=== PATIENT | male | born 1970 | race Caucasian/White ===

== ENCOUNTER 2016-09-11 09:55 | Emergency (ER) | payer OTHER ==
[2016-09-11 12:20] VITALS: BP 134/92
--- NOTE | 2016-09-11 12:20 | RAD ---
INDICATION: Upper back pain. COMPARISON: Comparison is made with a prior chest x-ray study from September 07, 2011. TECHNIQUE: AP and lateral films of the dorsal spine were obtained. FINDINGS: The vertebra are in normal alignment. No fracture is seen. Disc spaces appear maintained. IMPRESSION: NO EVIDENCE FOR FRACTURE.
--- NOTE | 2016-09-11 12:54 | RAD ---
INDICATION: Posterior lower cervical spine pain following injury 2 days ago. Hyperflexion injury. COMPARISON: August 26, 2006 CT. TECHNIQUE: Multidetector CT images foramen magnum to lung apices without contrast. Multiplanar reformation. REPORT: Negative for vertebral body or posterior element fracture at any level. Negative for facet subluxation. Negative for paravertebral hematoma. At C5-C6 there is moderate disc space narrowing and moderately severe dorsal osteophytosis and disc complex with interval enlargement of the osteophytes compared with the 2007 exam. Resulting mild acquired central canal stenosis. At C6-C7 there is mild vertebral endplate osteophytosis without significant disc space narrowing. Only slight resulting impression on the ventral margin of the thecal sac. IMPRESSION: Negative for traumatic cervical spine injury. Progression of degenerative spondylosis compared with the 2007 exam. No persistent widening at the anterior margin of the C6-C7 disc space evident.
--- NOTE | 2016-09-11 13:15 | UC ---
Tawanna Wise Matthew, scribed for Cyril Macdonald MD on 09/11/16 at 1125 . Neck Pain HPI - HPI Summary HPI Summary: A 46 y/o male presents to [facility] [place] pain since two days ago. The pain is rated 6/10 in severity. 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 The patient states that an instructor was trying to control the patient while in a supine position. He went into a push up position with his head lower than his body and the instructor on top of him lost his balance and sled on his neck. Immediately after standing, the patient felt a burning sensation and described the feeling as a possible pull muscle. Associated symptoms include headache, stiffness and decreased ROM. He has been taking ibuprofen without relieve. The patient does not smoke and drinks occasionally. FHx of diabetes and HTN. - History of Current Complaint Stated Complaint: NECK INJURY Time Seen by Provider: 09/11/16 11:00 Hx Obtained From: Patient Onset/Duration Of Injury/Symptoms: Days Timing: Constant Onset/Duration: Sudden Onset, Lasting Days, Still Present Severity: Moderate Pain Intensity: 6 Pain Scale Used: 0-10 Numeric Associated Signs & Symptoms: Positive: Headache - Allergies/Home Medications Allergies/Adverse Reactions: Allergies Allergy/AdvReac Type Severity Reaction Status Date / Time Lidocaine Allergy Severe Shortness Verified 08/17/15 11:30 of Breath Erythromycin Allergy Intermediate Diarrhea Verified 08/17/15 11:30 Home Medications: Home Medications Ibuprofen TAB* [Advil TAB*] 800 mg PO PRN 09/11/16 [History] PMH/Surg Hx/FS Hx/Imm Hx Endocrine History Of: Denies: Diabetes, Dyslipidemia Cardiovascular History Of: Denies: Hypertension - Surgical History Surgery Procedure, Year, and Place: ACL bilateral 2014, Meniscus Repair, L ACL reconstructive SX 2004, Right ACL repair 2013 - Family History Known Family History: Positive: Hypertension, Diabetes - Social History Alcohol Use: Weekly Substance Use Type: None Smoking Status (MU): Never Smoked Tobacco Review Of Systems Constitutional: Positive: Negative Skin: Positive: Negative Eyes: Positive: Negative ENT: Positive: Negative Respiratory: Positive: Negative Cardiovascular: Positive: Negative Gastrointestinal: Positive: Negative Genitourinary: Positive: Negative Musculoskeletal: Positive: Myalgia - Neck pain Neurological: Positive: Headache Psychological: Positive: Negative All Other Systems Reviewed And Are Negative: Yes Physical Exam Triage Information Reviewed: Yes Vital Signs: Temp Pulse Resp BP Pulse Ox 73 18 139/102 96 09/11/16 11:03 09/11/16 11:03 09/11/16 11:03 09/11/16 11:03 Vital Signs Reviewed: Yes - Additional Comments VITAL SIGNS: Reviewed. GENERAL: Patient is a well developed and nourished (male/female/child) who is lying comfortable in the stretcher. Patient is not in any acute respiratory distress. HEAD AND FACE: Normocephalic EYES: PERRLA, EOMI x 2. EARS: Hearing grossly intact. MOUTH: Oropharynx within normal limits. NECK: Supple, trachea is midline, no adenopathy, no JVD, no carotid bruit. The patient has C-Spine vertebral tenderness, positive bilateral para-spinal muscle tenderness in the C-Spine and positive right sternocleidomastoid muscle tenderness. CHEST: Symmetric, no tenderness at palpation LUNGS: Clear to auscultation bilaterally. No wheezing or crackles. CVS: Regular rate and rhythm, S1 and S2 present, no murmurs or gallops appreciated. ABDOMEN: Soft, non-tender. Bowel sounds are normal. No abdominal abnormal pulsations. EXTREMITIES: Full ROM in all major joints, no edema, no cyanosis or clubbing. NEURO: Alert and oriented x 3. No acute neurological deficits. Speech is normal and follows commands. SKIN: Dry and warm Diagnostics - Radiology Thoracic Spine XR Xray Interpretation: No Acute Changes - IMPRESSION: NO EVIDENCE FOR FRACTURE. Radiology Interpretation Completed By: Radiologist C-Spine CT Xray Interpretation: Positive (See Comments) - IMPRESSION: Negative for traumatic cervical spine injury. Progression of degenerative spondylosis compared with the 2007 exam. No persistent widening at the anterior margin of the C6-C7 disc space evident. Radiology Interpretation Completed By: Radiologist Neck Pain Course/Dx - Course Course Of Treatment: A 46 y/o male presents to [facility] with neck pain since two days ago. The pain is rated 6/10 in severity. 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 The patient states that an instructor was trying to control the patient while in a supine position. He went into a push up position with his head lower than his body and the instructor on top of him lost his balance and sled on his neck. Immediately after standing, the patient felt a burning sensation and described the feeling as a possible pull muscle. Associated symptoms include headache, stiffness and decreased ROM. He has been taking ibuprofen without relieve. The patient does not smoke and drinks occasionally. FHx of diabetes and HTN. CT C-Spine is negative for traumatic cervical spine injury. There is progression of degenerative spondylosis compared with the 2007 exam and no persistent widening at the anterior margin of the C6-C7 disc space evident. XR of T-Spine is negative for a fracture or dislocation. At this point the patient will be given a prescription for ibuprofen and Percocet for pain. He is to follow-up with his PCP. The patient was instructed to go to the ED if he develops increased pain, UE or LE numbness, or has any other complaint. The patient understands and agrees. He is hemodynamically stable and A&Ox3. Compensation paperwork was filled out. - Differential Dx/Diagnosis Differential Dx/HQI/PQRI: Cervical Fracture, Sprain, Strain Provider Diagnoses: Neck pain, Upper back pain Discharge - Discharge Plan Condition: Stable Disposition: HOME Patient Education Materials: Back Pain (ED), Neck Pain (ED) Referrals: [facility] [place] [facility] [Outside] Additional Instructions: Please use the physician referral to find a primary care physician and follow- up with them. Please return to the ED if you develop increased pain, upper or lower extremity numbness, or any other complaint. The documentation as recorded by the Tawanna merritt Matthew accurately reflects the service I personally performed and the decisions made by me, Cyril Macdonald MD.
== END 2016-09-11 13:00 | disposition home or self-care (01) ==
LOC: UCEAST 09:55
DX: M54.2 Cervicalgia (principal); M54.6 Pain in thoracic spine; M47.812 Spondylosis without myelopathy or radiculopathy, cervical region; Z88.4 Allergy status to anesthetic agent; Z88.1 Allergy status to other antibiotic agents
CPT/HCPCS: 72070; 72125; 99201; G0463

== ENCOUNTER 2016-09-17 12:46 | Emergency (ER) | payer BC, OTHER ==
[2016-09-17 15:27] VITALS: BP 148/97
--- NOTE | 2016-09-17 17:18 | UC ---
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 HE STATES HE HAS BEEN HAVING TO DRIVE TO HIS MEDICAL APPTS AND HAS HAD NO ISSUE. HE WAS INJURED ON THE JOB ON THURSDAY OF LAST WEEK AND SEEN IN OUR CLINIC BY DR. CASAREZ ON THURSDAY. HE WAS SENT FOR A FOLLOW UP FOR NEUROSURGERY D/T HIS PAIN, INJURY AND LIMITATIONS OF HIS RIGHT SHOULDER. HE STATES HE NEEDED A PCP PRIOR TO REFERRAL, AND WAS JUST SEEN BY DR. SPRAGUE'S OFFICE THIS WEEK AND IS AWAITING APPT WITH NEUROSURGERY. PROVIDER WAS ABLE TO READ OVER PREVIOUS VISIT AND NO RESTRICTIONS WERE PLACED ON PATIENT TO NOT DRIVE. WHILE HE STATES HE HAS PAIN ON NECK EXTENSION AND ROTATION LEFT AND RIGHT, HE IS ABLE TO PERFORM THESE MOVEMENTS WHICH WOULD CAUSE NO RESTRICTIONS WITH HIM DRIVING. - History of Current Complaint Chief Complaint: UCTrauma Stated Complaint: NECK INJURY Time Seen by Provider: 09/17/16 16:24 Hx Obtained From: Patient Onset/Duration Of Injury/Symptoms: Weeks Mechanism Of Injury: Blunt Trauma Timing: Constant Onset/Duration: Sudden Onset Severity: Mild Pain Intensity: 2 Pain Scale Used: 0-10 Numeric Location: Discrete At: - RIGHT SHOULDER AND RIGHT SIDE OF NECK Aggravating Factors: Movement Alleviating Factors: Position, Heat Associated Signs & Symptoms: Positive: Negative Related History: Occupational Injury - Risk Factors Meningitis Risk Factors: Negative - Allergies/Home Medications Allergies/Adverse Reactions: Allergies Allergy/AdvReac Type Severity Reaction Status Date / Time Lidocaine Allergy Severe Shortness Verified 09/17/16 15:28 of Breath Erythromycin Allergy Intermediate Diarrhea Verified 09/17/16 15:28 PMH/Surg Hx/FS Hx/Imm Hx Previously Healthy: Yes Endocrine History Of: Denies: Diabetes, Thyroid Disease, Dyslipidemia Cardiovascular History Of: Denies: Cardiac Disorders, Hypertension Respiratory History Of: Denies: COPD, Asthma GI/ History Of: Denies: Ulcer - Surgical History Surgical History: Yes Surgery Procedure, Year, and Place: ACL bilateral 2013, Meniscus Repair, L ACL reconstructive SX 2004, Right ACL repair 2013 - Family History Known Family History: Positive: Hypertension, Diabetes - Social History Occupation: Employed Full-time Lives: With Family Alcohol Use: Occasionally Substance Use Type: None Smoking Status (MU): Never Smoked Tobacco Review Of Systems Constitutional: Positive: Negative Respiratory: Positive: Negative Cardiovascular: Positive: Negative Gastrointestinal: Positive: Negative Musculoskeletal: Positive: Myalgia - PATIENT IS ABLE TO ROTATE NECK BOTH LEFT AND RIGHT AND EXTEND AND FLEX NECK BUT WITH PAIN. NO OTHER MSK ABNORMALITIES Neurological: Positive: Negative Psychological: Positive: Negative All Other Systems Reviewed And Are Negative: Yes Physical Exam Triage Information Reviewed: Yes Appearance: Well-Appearing, No Pain Distress, Well-Nourished Vital Signs: Initial Vital Signs Temp 98.4 F 09/17/16 15:21 Pulse 74 09/17/16 15:21 Resp 18 09/17/16 15:21 BP 148/97 09/17/16 15:21 Pulse Ox 100 09/17/16 15:21 Vital Signs Reviewed: Yes Eye Exam: Normal Eyes: Positive: Conjunctiva Clear Dental Exam: Normal Neck exam: Normal Neck: Positive: Supple Respiratory Exam: Normal Respiratory: Positive: Chest non-tender Cardiovascular: Positive: RRR Musculoskeletal: Positive: ROM Intact, No Edema Neurological Exam: Normal Neurological: Positive: Alert Psychological: Positive: Normal Response To Family Skin Exam: Normal Neck Pain Course/Dx - Course Course Of Treatment: PATIENT GIVEN NOTE FOR WORK FOR CLEARANCE TO BE ABLE TO DRIVE. PROVIDER BASED THIS DECISION ON PHYSICAL EXAM TODAY WELL NOTE FROM DR. CASAREZ PLACING HIM ON NO DRIVING RESTRICTIONS. PATIENT OK WITH THIS AND ENCOURAGED TO FOLLOW UP. WILL USE DR. CASAREZ NOTE ORIGINAL WORKMANS COMP NOTE. NO CHANGES. - Differential Dx/Diagnosis Differential Dx/HQI/PQRI: Arthritis, Cervical Fracture, Sprain, Strain Provider Diagnoses: WORKMANS COMPENSATION ISSUE Discharge - Discharge Plan Condition: Good Disposition: HOME Forms: *Gen. Provider Communication Referrals: No Primary Care Phys,NOPCP [Primary Care Provider] -
== END 2016-09-17 16:55 | disposition home or self-care (01) ==
LOC: UCEAST 12:46
DX: Z02.89 Encounter for other administrative examinations (principal); M54.2 Cervicalgia; M25.511 Pain in right shoulder
CPT/HCPCS: 99211; G0463

== ENCOUNTER 2017-03-31 12:21 | Emergency (ER) | payer SELFPAY ==
--- NOTE | 2017-03-31 13:32 | RAD ---
INDICATION: Left thumb injury. TECHNIQUE: 3 views of the left thumb were obtained. FINDINGS: There is soft tissue swelling adjacent to the distal phalanx. The bones are normal alignment. No fracture is seen. Joint spaces appear maintained. IMPRESSION: SOFT TISSUE SWELLING, NO FRACTURE IS SEEN.
[2017-03-31 14:12] VITALS: BP 132/78
--- NOTE | 2017-03-31 14:14 | ED ---
Upper Extremity Pain - HPI Summary HPI Summary: Patient presents to the ED with CC of left thumb injury after shutting in a car door. There is ecchymosis under the nail and he notes to some pain, but denies any pressure under the nail. Denies any other injuries He has full ROM of the MCP and PIP joint. Denies any other symptoms. No bleeding is noted. Denies numbness, tingling, color or temperature changes of the extremity. Pulses +2 bilaterally. Cap refill < 2 sec. - History of Current Complaint Chief Complaint: EDExtremityUpper Stated Complaint: CLOSED LT THUMB CAR DOOR Hx Obtained From: Patient Mechanism Of Injury: Blunt Trauma Onset/Duration: Started Minutes Ago Timing: Constant Severity Initially: Mild Severity Currently: Mild Pain Location: Finger Character: Dull, Aching Aggravating Factor(s): Movement, Lifting, Flexion, Extension Alleviating Factor(s): Rest, Ice Associated Signs & Symptoms: Positive: Bruising Related History: Occupational Injury, Dominant Hand Right - Risk Factors Non-Orthopedic Risk Factor: Negative DVT Risk Factors: Negative Septic Arthritis Risk Factor: Negative Compartment Syndrome Risk Factors: Pain - Allergies/Home Medications Allergies/Adverse Reactions: Allergies Allergy/AdvReac Type Severity Reaction Status Date / Time Lidocaine Allergy Severe Shortness Verified 09/17/16 15:28 of Breath Erythromycin Allergy Intermediate Diarrhea Verified 09/17/16 15:28 PMH/Surg Hx/FS Hx/Imm Hx Previously Healthy: Yes Endocrine/Hematology History: Denies: Hx Diabetes, Hx Thyroid Disease Cardiovascular History: Denies: Hx Hypertension Respiratory History: Denies: Hx Asthma, Hx Chronic Obstructive Pulmonary Disease (COPD) GI History: Denies: Hx Ulcer Musculoskeletal History: Denies: Hx Scoliosis Neurological History: Reports: Hx Headaches - STARTED TODAY Denies: Other Neuro Impairments/Disorders - Surgical History Surgery Procedure, Year, and Place: ACL bilateral 2013, Meniscus Repair, L ACL reconstructive SX 2004, Right ACL repair 2013 - Immunization History Hx Pertussis Vaccination: No Immunizations Up to Date: Unable to Obtain/Confirm Infectious Disease History: No Infectious Disease History: Denies: Hx Clostridium Difficile, Hx Hepatitis, Hx Human Immunodeficiency Virus (HIV), Hx of Known/Suspected MRSA, Hx Shingles, Hx Tuberculosis, Hx Known/ Suspected VRE, Hx Known/Suspected VRSA, History Other Infectious Disease, Traveled Outside the [place] in Last 30 Days - Family History Known Family History: Positive: Hypertension, Diabetes - Social History Occupation: Employed Full-time Lives: With Family Alcohol Use: Occasionally Hx Substance Use: No Substance Use Type: Reports: None Hx Tobacco Use: No Smoking Status (MU): Never Smoked Tobacco Review of Systems Constitutional: Negative Negative: Fever, Chills, Fatigue Eyes: Negative Cardiovascular: Negative Respiratory: Negative Negative: Shortness Of Breath, Cough Negative: Abdominal Pain, Vomiting, Diarrhea, Nausea Genitourinary: Negative Positive: no symptoms reported Positive: Arthralgia - left thumb nail with eccymosis and pain Positive: Bruising Neurological: Negative All Other Systems Reviewed And Are Negative: Yes Physical Exam Triage Information Reviewed: Yes Vital Signs On Initial Exam: Initial Vitals Temp Pulse Resp BP Pulse Ox 97.3 F 79 79 151/107 96 03/31/17 12:28 03/31/17 12:28 03/31/17 12:28 03/31/17 12:28 03/31/17 12:28 Vital Signs Reviewed: Yes Appearance: Positive: Well-Appearing, Well-Nourished Skin: Positive: Warm, Skin Color Reflects Adequate Perfusion Head/Face: Positive: Normal Head/Face Inspection Eyes: Positive: EOMI, [place], Conjunctiva Clear Respiratory/Lung Sounds: Positive: Clear to Auscultation, Breath Sounds Present Cardiovascular: Positive: Normal, RRR, Pulses are Symmetrical in both Upper and Lower Extremities Musculoskeletal: Positive: Strength/ROM Intact Neurological: Positive: Speech Normal Psychiatric: Positive: Normal AVPU Assessment: Alert - [place] Coma Scale Coma Scale Total: 15 Diagnostics - Vital Signs Vital Signs Temp Pulse Resp BP Pulse Ox 03/31/17 12:28 97.3 F 79 79 151/107 96 - Laboratory Lab Statement: Any lab studies that have been ordered have been reviewed, and results considered in the medical decision making process. Course/Dx - Course Course Of Treatment: Patient is evaluated for distal thumb injury after injury with car door. Ecchymois under the nail, but no pressure is noted. NO subungal hematoma. This is occupationally related. Full ROM. Xray shows swelling with no acute fracture. Patient made aware. Pulses +2 bilaterally. Cap refill < 2 sec. He is able to return to normal activities and is encouraged to return if symptoms become worse or he develops a subungal hematoma. - Diagnoses Differential Diagnosis/HQI/PQRI: Positive: Contusion Provider Diagnoses: Finger nail contusion Discharge - Discharge Plan Condition: Stable Disposition: HOME Patient Education Materials: Subungual Hematoma (ED), Contusion in Adults (ED) Referrals: Mike Riggs MD [Primary Care Provider] - Additional Instructions: Please follow up with PCP as needed If you develop a subungual hematoma which creates pressure and pain, you may have to get the area drained No restrictions for work.
== END 2017-03-31 14:12 | disposition home or self-care (01) ==
LOC: ED 12:21
DX: S60.112A Contusion of left thumb with damage to nail, initial encounter (principal); W23.0XXA Caught, crushed, jammed, or pinched between moving objects, initial encounter; Y93.9 Activity, unspecified; Y92.9 Unspecified place or not applicable
CPT/HCPCS: 99281

== ENCOUNTER 2018-04-02 20:46 | Emergency (ER) | payer BC, OTHER ==
--- NOTE | 2018-04-02 21:30 | ED ---
Upper Extremity Pain - HPI Summary HPI Summary: This patient is a 47 year old male presenting to [facility] with a chief complaint of left forearm pain [employer]. 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 The pain is described as stabbing, shooting, throbbing. The pain is rated 5/10 in severity. Symptoms aggravated by nothing. Symptoms alleviated by nothing. Patient additionally reports finger tingling, warmness. Patient denies shoulder pain. - History of Current Complaint Chief Complaint: EDExtremityUpper Stated Complaint: LT FOREARM INJURY Time Seen by Provider: 04/02/18 21:21 Hx Obtained From: Patient Mechanism Of Injury: Unknown Onset/Duration: Started Hours Ago, Still Present Timing: Constant Severity Currently: Moderate Pain Location: Elbow, Forearm - left Character: Sharp, Burning Aggravating Factor(s): Nothing Alleviating Factor(s): Nothing Associated Signs & Symptoms: Positive: Negative - shoulder pain, Other - finger tingling, warmness - Allergies/Home Medications Allergies/Adverse Reactions: Allergies Allergy/AdvReac Type Severity Reaction Status Date / Time erythromycin base Allergy Diarrhea Verified 04/02/18 20:53 [From Erythrocin] lidocaine Allergy Shortness Verified 04/02/18 20:53 of Breath PMH/Surg Hx/FS Hx/Imm Hx Previously Healthy: Yes Endocrine/Hematology History: Denies: Hx Diabetes, Hx Thyroid Disease Cardiovascular History: Denies: Hx Hypertension Respiratory History: Denies: Hx Asthma, Hx Chronic Obstructive Pulmonary Disease (COPD) GI History: Denies: Hx Ulcer Musculoskeletal History: Denies: Hx Scoliosis Neurological History: Reports: Hx Headaches - STARTED TODAY Denies: Other Neuro Impairments/Disorders - Surgical History Surgery Procedure, Year, and Place: ACL bilateral 2013, Meniscus Repair, L ACL reconstructive SX 2004, Right ACL repair 2013 Infectious Disease History: No Infectious Disease History: Denies: Hx Clostridium Difficile, Hx Hepatitis, Hx Human Immunodeficiency Virus (HIV), Hx of Known/Suspected MRSA, Hx Shingles, Hx Tuberculosis, Hx Known/ Suspected VRE, Hx Known/Suspected VRSA, History Other Infectious Disease, Traveled Outside the [place] in Last 30 Days - Family History Known Family History: Positive: Hypertension, Diabetes - Social History Lives: With Family Alcohol Use: Occasionally Hx Substance Use: No Substance Use Type: Reports: None Hx Tobacco Use: No Smoking Status (MU): Never Smoked Tobacco Review of Systems Negative: Fever Positive: Other - left forearm/elbow pain Positive: Paresthesia - left fingers All Other Systems Reviewed And Are Negative: Yes Physical Exam - Summary Physical Exam Summary: Appearance: Well-appearing, Well-nourished, lying in bed comfortable Skin: Warm, dry, no obvious rash Eyes: sclera anicteric, no conjunctival pallor ENT: mucous membranes moist Neck: deferred Respiratory: No signs of respiratory distress Cardiovascular: Appears well perfused, pulses are nml Abdomen: deferred Musculoskeletal: tenderness bout the lateral epcondi, full rom of shoulder, elbow and wrist Neurological: Awake and alert, mentation is normal, speech is fluent and appropriate Psychiatric: affect is normal, does not appear anxious or depressed Triage Information Reviewed: Yes Vital Signs On Initial Exam: Initial Vitals Temp Pulse Resp BP Pulse Ox 98.6 F 89 18 135/91 95 04/02/18 20:47 04/02/18 20:47 04/02/18 20:47 04/02/18 20:47 04/02/18 20:47 Vital Signs Reviewed: Yes Diagnostics - Vital Signs Vital Signs Temp Pulse Resp BP Pulse Ox 04/02/18 20:47 98.6 F 89 18 135/91 95 - Laboratory Lab Statement: Any lab studies that have been ordered have been reviewed, and results considered in the medical decision making process. Course/Dx - Course Assessment/Plan: This patient is a 47 year old male presenting to [facility] with a chief complaint of left forearm pain [employer]. 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 The pain is described as stabbing, shooting, throbbing. Patient will be discharged with a dx of Tennis elbow. Patient is advised to follow up with PCP in 3 days. The patient is agreeable with this plan. - Diagnoses Provider Diagnoses: Lateral epicondylitis Discharge - Sign-Out/Discharge Documenting (check all that apply): Patient Departure - Discharge Plan Condition: Stable Disposition: HOME Patient Education Materials: Tennis Elbow (ED) Referrals: Amadou Adams MD [Medical Doctor] - Additional Instructions: This is an injury of the connection of the muscle and bone about your elbow. Treatment initially is Motrin or Tylenol, icing it 3-4 times a day, and avoiding activities that worsen the pain. He may take a few days to weeks to resolve. If it does not seem to be getting better, contact the orthopedic surgeon listed above. - Billing Disposition and Condition Condition: STABLE Disposition: Home - Attestation Statements Document Initiated by Tarun: Yes Documenting Scribe: Lio Ravi Provider For Whom Tarun is Documenting (Include Credential): Emerson Heart MD Scribe Attestation: I, Lio Ravi, scribed for Emerson Heart MD on 04/05/18 at 1354. Scribe Documentation Reviewed: Yes Provider Attestation: The documentation as recorded by the Lio merritt accurately reflects the service I personally performed and the decisions made by me, Emerson Heart MD
[2018-04-02 22:19] VITALS: BP 122/91
== END 2018-04-02 22:18 | disposition home or self-care (01) ==
LOC: ED 20:46
DX: M77.12 Lateral epicondylitis, left elbow (principal)
CPT/HCPCS: 99281

== ENCOUNTER 2019-02-27 17:30 | Emergency (ER) | payer BC, OTHER ==
[2019-02-27 17:39] VITALS: BP 135/92
[2019-02-27] MEDS ORDERED: Mupirocin 2% OINT* TUBE TOPICAL ONE (17:59)
[2019-02-27] MEDS ORDERED: Cephalexin CAP* 500 MG PO ONE ×2 (18:00)
[2019-02-27] MEDS ORDERED: Tetan/Diph/Pertus SYR(Tdap)* 0.5 ML SYR(BOOSTRIX) use SYR IM ONE (18:03)
--- NOTE | 2019-02-27 18:07 | UC ---
Skin Complaint HPI - HPI Summary HPI Summary: 48-year-old male comes in with a chief complaint of wound to his right lower leg. About 2 weeks ago he injured his right wells. Splint gradually healing in the last 2 days his been wearing high boots at work that were rubbing on the area and now the area has he come erythematous. Did have some drainage.'s been treating with Neosporin and the redness is spreading. No fevers or chills. - History of Current Complaint Chief Complaint: [facility] Time Seen by Provider: 02/27/19 17:43 Stated Complaint: R LEG INJURY Pain Intensity: 1 - Allergy/Home Medications Allergies/Adverse Reactions: Allergies Allergy/AdvReac Type Severity Reaction Status Date / Time lidocaine Allergy Shortness Verified 02/27/19 17:39 of Breath erythromycin base AdvReac Diarrhea Verified 02/27/19 17:39 [From Erythrocin] PMH/Surg Hx/FS Hx/Imm Hx Previously Healthy: Yes - Surgical History Surgical History: Yes Surgery Procedure, Year, and Place: ACL bilateral 2013, Meniscus Repair, L ACL reconstructive SX 2004, Right ACL repair 2013 (total: three surgeries on left knee, two on right knee). sinus surgery. T&A - Family History Known Family History: Positive: Hypertension, Diabetes - Social History Alcohol Use: Weekly Substance Use Type: None Smoking Status (MU): Never Smoked Tobacco - Immunization History Most Recent Tetanus Shot: unknown Review of Systems All Other Systems Reviewed And Are Negative: Yes Constitutional: Positive: Negative Skin: Positive: Other - SEE HPI Eyes: Positive: Negative ENT: Positive: Negative Respiratory: Positive: Negative Cardiovascular: Positive: Negative Gastrointestinal: Positive: Negative Motor: Positive: Negative Neurovascular: Positive: Negative Musculoskeletal: Positive: Negative Neurological: Positive: Negative Psychological: Positive: Negative Is Patient Immunocompromised?: No Physical Exam Triage Information Reviewed: Yes Appearance: Well-Appearing, No Pain Distress, Well-Nourished Vital Signs: Initial Vital Signs Temp 97.4 F 02/27/19 17:34 Pulse 80 02/27/19 17:34 Resp 16 02/27/19 17:34 BP 135/92 02/27/19 17:34 Pulse Ox 97 02/27/19 17:34 Vital Signs Reviewed: Yes Eye Exam: Normal Eyes: Positive: Conjunctiva Clear Neck: Positive: Supple Respiratory: Positive: No respiratory distress Musculoskeletal: Positive: Strength Intact, ROM Intact Neurological: Positive: Alert, Muscle Tone Normal Psychological: Positive: Age Appropriate Behavior Skin: Positive: Other - Right anterior wells has a 1.5 cm diameter area is missing the top layer of skin. No drainage at this time I did take a culture of this area. This is in the middle of a larger 3 cm x 4 cm area of darker erythema. 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 The central area is mildly warm to touch. No streaking. Course/Dx - Course Course Of Treatment: The planned for the wound is to stop the Neosporin in case that's irritating the wound. Replaced it with mupirocin. Treat with Keflex by mouth. Patient received T tap here in clinic. Reevaluate if not improving or worse. - Diagnoses Provider Diagnosis: Cellulitis of right lower leg Discharge ED - Sign-Out/Discharge Documenting (check all that apply): Patient Departure All imaging exams completed and their final reports reviewed: No Studies - Discharge Plan Condition: Stable Disposition: HOME Prescriptions: Cephalexin CAP* [Keflex CAP*] 500 mg PO QID #38 cap Mupirocin 1 applic TOPICAL BID #22 gm Patient Education Materials: Cellulitis (ED) Referrals: Mike Riggs MD [Primary Care Provider] - Additional Instructions: FOLLOW UP WITH YOUR DOCTOR IF NOT COMPLETELY IMPROVED. YOU RECEIVED THE TDAP (TETANUS AND DIPTHERIA) IMMUNIZATION TODAY. GO TO THE EMERGENCY DEPARTMENT IF YOUR CONDITION WORSENS; SPREAD OF INFECTION, YOU FEEL ILL, FEVER OR ANY QUESTIONS OR CONCERNS. - Billing Disposition and Condition Condition: STABLE Disposition: Home
--- NOTE | 2019-02-28 12:13 | UC ---
- Progress Note Progress Note: Requested to order wound culture right lower leg. Course/Dx - Diagnoses Provider Diagnoses: Cellulitis of right lower leg Discharge ED - Sign-Out/Discharge Documenting (check all that apply): Post-Discharge Follow Up All imaging exams completed and their final reports reviewed: No Studies - Discharge Plan Condition: Stable Disposition: HOME Prescriptions: Cephalexin CAP* [Keflex CAP*] 500 mg PO QID #38 cap Mupirocin 1 applic TOPICAL BID #22 gm Patient Education Materials: Cellulitis (ED) Referrals: Mike Riggs MD [Primary Care Provider] - Additional Instructions: FOLLOW UP WITH YOUR DOCTOR IF NOT COMPLETELY IMPROVED. YOU RECEIVED THE TDAP (TETANUS AND DIPTHERIA) IMMUNIZATION TODAY. GO TO THE EMERGENCY DEPARTMENT IF YOUR CONDITION WORSENS; SPREAD OF INFECTION, YOU FEEL ILL, FEVER OR ANY QUESTIONS OR CONCERNS. - Billing Disposition and Condition Condition: STABLE Disposition: Home
--- NOTE | 2019-03-03 17:35 | UC ---
- Progress Note Progress Note: no neutrophils, no organisms Day 2 final no change higinio Course/Dx - Diagnoses Provider Diagnoses: Cellulitis of right lower leg Discharge ED - Sign-Out/Discharge Documenting (check all that apply): Post-Discharge Follow Up All imaging exams completed and their final reports reviewed: No Studies - Discharge Plan Condition: Stable Disposition: HOME Prescriptions: Cephalexin CAP* [Keflex CAP*] 500 mg PO QID #38 cap Mupirocin 1 applic TOPICAL BID #22 gm Patient Education Materials: Cellulitis (ED) Referrals: Mike Riggs MD [Primary Care Provider] - Additional Instructions: FOLLOW UP WITH YOUR DOCTOR IF NOT COMPLETELY IMPROVED. YOU RECEIVED THE TDAP (TETANUS AND DIPTHERIA) IMMUNIZATION TODAY. GO TO THE EMERGENCY DEPARTMENT IF YOUR CONDITION WORSENS; SPREAD OF INFECTION, YOU FEEL ILL, FEVER OR ANY QUESTIONS OR CONCERNS. - Billing Disposition and Condition Condition: STABLE Disposition: Home
== END 2019-02-27 18:20 | disposition home or self-care (01) ==
LOC: UCEAST 17:30
DX: L03.115 Cellulitis of right lower limb (principal); Z23 Encounter for immunization
CPT/HCPCS: 87070; 87205; 90471; 90715; 99213; A9270-GY; G0463